=== PATIENT | male | born 1975 | race Caucasian/White ===

== ENCOUNTER 2016-11-29 10:43 | Emergency (ER) | payer MEDICAID ==
[2016-11-29 11:10] VITALS: BP 121/72
--- NOTE | 2016-11-29 11:32 | ER Document Report ---
ED General - General Chief Complaint: Skin Problem Stated Complaint: POSSIBLE SHINGLES Time Seen by Provider: 11/29/16 11:16 Mode of Arrival: Ambulatory Information source: Patient Notes: Patient is 41 year old male who presents with 1 day history of red burning rash to his upper back. He has previous history of shingles and states this feels the same. Reports usually his shingles flare during times of stress and he recently had a relative pass away. He takes gapabentin 800 mg TID which he is out of and takes valtrex once daily. He was seeing a infectious disease doctor for his reoccurring shingles in [place] but has not seen them recently. He denies any fever, chills, difficulty breathing, chest pain. He also endorses right posterior heel pain that has been present for several months. He states his primary doctor in [place] had his foot xrayed and ultrasound done in October 2016 but both were normal. He endorses pain worse with walking and relief when pressure is applied to the heel. Denies any fever, chills, swelling, erythema, warmth, deformity, drainage or bleeding. TRAVEL OUTSIDE OF THE [place] 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 Review of Systems - Review of Systems Constitutional: See HPI EENT: No symptoms reported Cardiovascular: No symptoms reported Respiratory: No symptoms reported Gastrointestinal: No symptoms reported Genitourinary: No symptoms reported Male Genitourinary: No symptoms reported Musculoskeletal: See HPI Skin: See HPI Hematologic/Lymphatic: No symptoms reported Neurological/Psychological: No symptoms reported Physical Exam - Vital signs Vitals: Temp Pulse Resp BP Pulse Ox 98.3 F 67 20 121/72 99 11/29/16 11:05 11/29/16 11:05 11/29/16 11:05 11/29/16 11:05 11/29/16 11:05 Interpretation: Normal - Notes Notes: PHYSICAL EXAM: CONSTITUTIONAL: Alert and oriented, well-appearing and in no acute distress. HENT: Normocephalic, atraumatic. Trachea midline. Uvula midline. Moist mucous membranes. EYES: Pupils equal round and reactive to light, EOM intact. Sclera anicteric, conjunctiva are normal. No entrapment. NECK: supple without lymphadenopathy. No midline tenderness or paraspinous muscle spasms. No step-offs or deformities. ROM intact. HEART: Regular rate and rhythm without murmurs. LUNGS: CTAB and equal. No wheezes, rales or rhonchi. EXTREMITIES: Normal range of motion, no pitting edema. No cyanosis. Cap Refill < 3 seconds. Tender to palpation to right heel with mild swelling to posterior calcaneus - no erythema, warmth, ecchymosis, fluctuance, drainage, bleeding, deformity. No achilles tendon deformity or pain. NEURO: Cranial nerves grossly intact. Normal sensory/motor exams. PSYCH: Normal mood, normal affect. SKIN: Warm and dry. Normal turgor. No lesions noted. Red vesicular rash in circular pattern localized to C6 dermatome that does not cross the midline. Course - Re-evaluation Re-evalutation: 11/29/16 11:22 Patient seen and examined. Red vesicular rash in circular pattern localized to C6 dermatome that does not cross the midline - consistent with herpes zoster.Will prescribed antiviral and refill his gabapentin. Area to right posterior heel consistent with callus - will defer imaging due to recent normal xrays/ultrasound per patient. Advised to follow-up with podiatry/ortho as needed for this pain. At this time, will discharge with return precautions and follow-up recommendations. Verbal discharge instructions given at the bedside and opportunity for questions given. Medication warnings reviewed. Patient is in agreement with this plan and has verbalized understanding of return precautions and the need for primary care follow-up in the next 24-72 hours. - Vital Signs Vital signs: Temp Pulse Resp BP Pulse Ox 98.3 F 67 20 121/72 99 11/29/16 11:05 11/29/16 11:05 11/29/16 11:05 11/29/16 11:05 11/29/16 11:05 Discharge - Discharge Clinical Impression: Shingles Qualifiers: Herpes zoster complications: without complications Qualified Code(s): B02.9 - Zoster without complications Right ankle pain Qualifiers: Chronicity: acute Qualified Code(s): M25.571 - Pain in right ankle and joints of right foot Condition: Stable Disposition: HOME, SELF-CARE Additional Instructions: Shingles You have shingles. Shingles is caused by the chicken pox virus, The virus has been surviving dormant in a nerve cell since you had chicken pox years ago. The virus has spread down a nerve root to reach the skin. Typically, an band-like area of pain and skin sensitivity develops, then small blisters erupt in the area. Shingles lasts two or three weeks, but sometimes leaves persistent pain. You are contagious -- you can give children chicken pox. But you can't give anyone shingles. Antiviral medicines (such as acyclovir or famciclovir) can help, but the rash usually worsens for about a week. Pain medication is often given if the area hurts. Antihistamines such as Benadryl may be necessary for itching if it does not respond to soda baths and calamine lotion. Sometimes cortisone medicine or nerve-block shots are necessary if pain is severe. If the area remains severely painful as the sores heal, or if you suspect an infection developing in the sores, see your doctor. For your ankle pain, because you have had normal ultrasound and xrays, we recommend you follow-up with orthopedics for further evaluation and imaging studies. You have been provided with this contact information. FOLLOW-UP CARE: If you have been referred to a physician for follow-up care, call the physician s office for an appointment as you were instructed or within the next two days. If you experience worsening or a significant change in your symptoms, notify the physician immediately or return to the Emergency Department at any time for re-evaluation. Prescriptions: Gabapentin 800 mg PO Q8H 30 Days Hydrocodone/Acetaminophen [Collyer 5-325 mg Tablet] 1 tab PO Q6H PRN #10 tablet PRN Reason: Valacyclovir HCl [Valtrex] 1,000 mg PO TID 7 Days Referrals: DIRK HERNANDEZ MD [ACTIVE STAFF] - Follow up as needed
== END 2016-11-29 11:38 | disposition home or self-care (01) ==
LOC: ER 10:43
DX: B02.9 Zoster without complications (principal); M25.571 Pain in right ankle and joints of right foot; M79.671 Pain in right foot; M79.89 Other specified soft tissue disorders; F17.200 Nicotine dependence, unspecified, uncomplicated; Z86.14 Personal history of Methicillin resistant Staphylococcus aureus infection
CPT/HCPCS: 99283

== ENCOUNTER 2018-10-19 18:08 | Emergency (ER) | payer SELFPAY ==
[2018-10-19] MEDS ORDERED: MORPHINE SULFATE 10 MG/ML INJ IV PRN (18:42)
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
[2018-10-19 20:31] VITALS: BP 125/89
== END 2018-10-19 20:33 | disposition home or self-care (01) ==
LOC: ER 18:08
DX: S09.90XA Unspecified injury of head, initial encounter (principal); M25.512 Pain in left shoulder; M54.2 Cervicalgia; W20.8XXA Other cause of strike by thrown, projected or falling object, initial encounter; F17.200 Nicotine dependence, unspecified, uncomplicated; Z86.14 Personal history of Methicillin resistant Staphylococcus aureus infection
CPT/HCPCS: 99284; 96374; 71045; 73000; 73030; 70450; 72125; L0120; J2270

== ENCOUNTER 2019-07-05 16:53 | Emergency (ER) | payer SELFPAY ==
[2019-07-05] MEDS ORDERED: AMOXICILLIN TRIHYDRATE 500 MG CAPSULE PO ONE (19:04)
[2019-07-05] MEDS ORDERED: AMOXICILLIN TR/POT CLAVULANATE 500-125 MG TAB PO ONE (19:04)
--- NOTE | 2019-07-05 19:05 | ER Document Report ---
HPI - HPI Time Seen by Provider: 07/05/19 19:04 Pain Level: 3 Context: Patient is a 44-year-old male with a history of hypertension and chronic nerve pain who presents emergency department with a chief complaint of dog bite. Patient reports he was bit by a stray dog 2 days ago [place] Patient reports that the dog came up to him and he bent down to pet him when it bit his hand. Patient reports a puncture wound to the right hand and teeth farris to the top of the right forearm. Patient reports since then they have scabbed over but they are slightly reddened. Patient reports 1 of the wounds did have a small amount of drainage. Patient denies fever. Patient reports he has not been seen by provider or given antibiotics. Patient reports his tetanus shot is up-to-date. Patient reports that the animal control was not notified. 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 He reports that his friends were visiting from out of town and that they had since returned to another state. He states that the immunizations are up-to-date on the dog and that he would like to refuse the rabies vaccination although he does not have proof that the shots are up-to-date. Past Medical History - General Information source: Patient - Social History Smoking Status: Current Every Day Smoker Chew tobacco use (# tins/day): No Frequency of alcohol use: None Drug Abuse: None Lives with: Family Family History: Reviewed & Not Pertinent Patient has suicidal ideation: No Patient has homicidal ideation: No - Past Medical History Cardiac Medical History: Reports: Hx Hypertension Pulmonary Medical History: Reports: None EENT Medical History: Reports: None Neurological Medical History: Reports: None Endocrine Medical History: Reports: None Renal/ Medical History: Reports: None. Denies: Hx Peritoneal Dialysis Malignancy Medical History: Reports None GI Medical History: Reports: None Musculoskeletal Medical History: Reports None Skin Medical History: Comment Only Hx MRSA - MRSA 05/18 HAND Psychiatric Medical History: Reports: None Traumatic Medical History: Reports: None Infectious Medical History: Reports: None Surgical Hx: Negative Vertical Provider Document - CONSTITUTIONAL Agree With Documented VS: Yes Exam Limitations: No Limitations General Appearance: No Apparent Distress - INFECTION CONTROL TRAVEL OUTSIDE OF THE [place] IN LAST 30 DAYS: No - HEENT HEENT: Atraumatic, Normal ENT Exam, Normocephalic, PERRLA - RESPIRATORY Respiratory: Breath Sounds Normal, No Respiratory Distress - CARDIOVASCULAR Cardiovascular: Regular Rate, Regular Rhythm - GI/ABDOMEN Gastrointestinal: Abdomen Soft, Abdomen Non-Tender, Normal Bowel Sounds - MUSCULOSKELETAL/EXTREMETIES Musculoskeletal/Extremeties: FROM, Non-Tender - NEURO Level of Consciousness: Awake, Alert, Appropriate - DERM Integumentary: Warm Notes: Patient has a scabbed over puncture wound x2 to the dorsal aspect of the right hand. There is a slight amount of erythema noted around the scab consistent with possible healing. There is no active drainage. Patient is able to make a fist with his right hand. Patient has a palpable +2 radial and brachial pulse. Patient does have 2 superficial scratches to the dorsal aspect of the right forearm. Slight erythema noted around the scab consistent with possible healing. No signs of cellulitis at this time. Course - Re-evaluation Re-evalutation: 07/05/19 19:35 We will clean the patient's dog bites. Patient continues to refuse the rabies vaccination as he reports that the dog's immunizations are up-to-date. I did inform him that he can if he were exposed to the rabies. Patient verbalized understanding and states that he is not want the rabies vaccine or immunoglobulin at this time. We will give the patient a dose of antibiotics as well as obtain an x-ray to rule out foreign body. 07/05/19 20:09 Patient's x-ray were negative for any acute foreign body. Patient stable for discharge and given strict return precautions. 07/05/19 20:21 I did reiterate the importance of receiving the rabies vaccine as the dog could have rabies. Patient reports that he does not want the rabies vaccination or immunoglobulin as the dog is well taking care of and he knows that the shots are up-to-date. - Vital Signs Vital signs: Temp Pulse Resp BP Pulse Ox 98.0 F 65 18 119/79 97 07/05/19 17:09 07/05/19 17:09 07/05/19 17:09 07/05/19 17:09 07/05/19 17:09 - Diagnostic Test Radiology reviewed: Reports reviewed Radiology results interpreted by me: 07/05/19 20:09 Forearm X-Ray 07/05/19 19:04 IMPRESSION: Distal forearm soft tissue swelling without radiopaque foreign body or acute underlying osseous abnormality. Hand X-Ray 07/05/19 19:04 IMPRESSION: Distal forearm and dorsal hand soft tissue swelling without radiopaque foreign body or acute underlying osseous abnormality. Discharge - Discharge Clinical Impression: Dog bite Qualifiers: Encounter type: initial encounter Qualified Code(s): W54.0XXA - Bitten by dog, initial encounter Condition: Stable Disposition: HOME, SELF-CARE Additional Instructions: *Today you are seen in the emergency department for a dog bite. We did clean the wounds as well as obtain an x-ray of your right hand and forearm to rule out possible broken bone or foreign body. These x-rays were negative. We have started you on oral antibiotics and given your first dose here in the emergency department. You will take this antibiotic for the next 10 days to help prevent infection. Animal bites are heavily contaminated with bacteria. You do need to keep the wounds as clean as possible and to monitor for worsening signs of infection to include increasing redness, increasing swelling and streaking of redness up the arm, fever or any new or worsening symptoms. If you develop any of the symptoms please return immediately. We did offer you the rabies vaccine and immunoglobulin as you do not have proof that the dog's immunizations are up-to-date but you have politely declined this at this time. If you do decide you would like this please return to the emergency department. Animal Bites Animal bites are often heavily contaminated with bacteria. In spite of thorough cleansing and proper treatment, these wounds frequently become infected. Bite wounds of the hands are especially prone to complications. Bites are dressed, if possible. Large wounds may require suturing after internal cleansing. Because of infection risk, some large wounds must remain unstitched. Your doctor is trained to advise you on the best treatment for your bite. Call the doctor at once if the wound becomes red, swollen, warm, increasingly painful, or if it begins to drain. Danger signs also include red streaks up the involved extremity, swollen glands in the groin or under the arm, or fever and chills. The risk of rabies from domestic animals is very low. Bats, sick animals, and wild animals may expose you to rabies. The physician, or the health department, will inform you if you will need to receive the rabies vaccine. Prescriptions: Amox Tr/Potassium Clavulanate [Augmentin 875-125 mg Tablet] 1 tab PO BID #20 tablet Referrals: SHARRI ZEPEDA MD [COMMUNITY BASED STAFF] - Follow up as needed GRAEME LAW MD [ACTIVE STAFF] - Follow up as needed
--- NOTE | 2019-07-05 19:53 | RADIOLOGY REPORT (SQ) ---
EXAM DESCRIPTION: FOREARM RIGHT COMPLETED DATE/TIME: 07/05/2019 7:32 pm REASON FOR STUDY: dog bite right hand/forearm COMPARISON: None. NUMBER OF VIEWS: Two views. TECHNIQUE: Two radiographic images acquired of the right forearm, including elbow and wrist in at le ast one projection. LIMITATIONS: None. FINDINGS: MINERALIZATION: Normal. BONES: No acute fracture. No worrisome bone lesions. Degenerative changes of the elbow. SOFT TISSUES: Distal forearm soft tissue swelling. No foreign body. OTHER: No other significant finding. IMPRESSION: Distal forearm soft tissue swelling without radiopaque foreign body or acute underlying osseous abnormality. TECHNICAL DOCUMENTATION: JOB ID: [id number] [employer]- All Rights Reserved Reading location - IP/workstation name: [email or web address]
--- NOTE | 2019-07-05 19:54 | RADIOLOGY REPORT (SQ) ---
EXAM DESCRIPTION: HAND RIGHT 3 VIEWS COMPLETED DATE/TIME: 07/05/2019 7:32 pm REASON FOR STUDY: dog bite right hand/forearm COMPARISON: None. EXAM PARAMETERS: NUMBER OF VIEWS: Three views. TECHNIQUE: AP, lateral and oblique radiographic images acquired of the right hand. LIMITATIONS: None. FINDINGS: MINERALIZATION: Normal. BONES: No acute fracture or dislocation. No worrisome bone lesions. JOINTS: No effusions. SOFT TISSUES: Distal forearm and dorsal hand soft tissue swelling. No foreign body. OTHER: No other significant finding. IMPRESSION: Distal forearm and dorsal hand soft tissue swelling without radiopaque foreign body or a cute underlying osseous abnormality. TECHNICAL DOCUMENTATION: JOB ID: [id number] [employer]- All Rights Reserved Reading location - IP/workstation name: [email or web address]
[2019-07-05 19:56] VITALS: BP 136/78
== END 2019-07-05 20:17 | disposition home or self-care (01) ==
LOC: ER 16:53
DX: S61.451A Open bite of right hand, initial encounter (principal); S51.851A Open bite of right forearm, initial encounter; W54.0XXA Bitten by dog, initial encounter; Y92.828 Other wilderness area as the place of occurrence of the external cause
CPT/HCPCS: 99283

== ENCOUNTER → 2020-05-09 | Outpatient (CLI) | payer SELFPAY ==
--- NOTE | 2020-05-10 08:29 | RADIOLOGY REPORT (SQ) ---
EXAM DESCRIPTION: ANKLE RIGHT COMPLETE; FOOT LEFT COMPLETE IMAGES COMPLETED DATE/TIME: 05/09/2020 8:52 pm REASON FOR STUDY: INJURY OF RIGHT ANKLE, INITIAL ENCOUNTER; INJURY OF FOOT, INITIAL ENCOUNTER COMPARISON: None. NUMBER OF VIEWS: Six views. TECHNIQUE: AP, lateral and oblique radiographic images acquired of the right ankle and right foot. LIMITATIONS: None. FINDINGS: MINERALIZATION: Normal. BONES: No acute fracture or dislocation. No worrisome bone lesions. JOINTS: No effusions. SOFT TISSUES: No soft tissue swelling. No foreign body. OTHER: No other significant finding. IMPRESSION: No evidence of acute injury. TECHNICAL DOCUMENTATION: JOB ID: [id number] 2010 [employer]- All Rights Reserved Reading location - IP/workstation name: [email or web address]
--- NOTE | 2020-05-10 08:29 | RADIOLOGY REPORT (SQ) ---
EXAM DESCRIPTION: ANKLE RIGHT COMPLETE; FOOT LEFT COMPLETE IMAGES COMPLETED DATE/TIME: 05/09/2020 8:52 pm REASON FOR STUDY: INJURY OF RIGHT ANKLE, INITIAL ENCOUNTER; INJURY OF FOOT, INITIAL ENCOUNTER COMPARISON: None. NUMBER OF VIEWS: Six views. TECHNIQUE: AP, lateral and oblique radiographic images acquired of the right ankle and right foot. LIMITATIONS: None. FINDINGS: MINERALIZATION: Normal. BONES: No acute fracture or dislocation. No worrisome bone lesions. JOINTS: No effusions. SOFT TISSUES: No soft tissue swelling. No foreign body. OTHER: No other significant finding. IMPRESSION: No evidence of acute injury. TECHNICAL DOCUMENTATION: JOB ID: [id number] 2010 [employer]- All Rights Reserved Reading location - IP/workstation name: [email or web address]
--- NOTE | 2020-05-10 08:42 | RADIOLOGY REPORT (SQ) ---
EXAM DESCRIPTION: HAND RIGHT 3 VIEWS IMAGES COMPLETED DATE/TIME: 05/09/2020 8:52 pm REASON FOR STUDY: INJURY OF HAND, INITIAL ENCOUNTER COMPARISON: 07/05/2019 EXAM PARAMETERS: NUMBER OF VIEWS: Three views. TECHNIQUE: AP, lateral and oblique radiographic images acquired of the right hand. LIMITATIONS: None. FINDINGS: MINERALIZATION: Normal. BONES: No acute fracture or dislocation. No worrisome bone lesions. JOINTS: No effusions. SOFT TISSUES: No soft tissue swelling. No foreign body. OTHER: No other significant finding. IMPRESSION: NO RADIOGRAPHIC EVIDENCE OF ACUTE INJURY. TECHNICAL DOCUMENTATION: JOB ID: [id number] 2010 [employer]- All Rights Reserved Reading location - IP/workstation name: [email or web address]
--- NOTE | 2020-05-10 08:45 | RADIOLOGY REPORT (SQ) ---
EXAM DESCRIPTION: SHOULDER LEFT 2 OR MORE VIEWS IMAGES COMPLETED DATE/TIME: 05/09/2020 8:52 pm REASON FOR STUDY: INJURY OF SHOULDER, INITIAL ENCOUNTER COMPARISON: 10/19/2018 NUMBER OF VIEWS: Three views. TECHNIQUE: Internal rotation, external rotation, and Y view images acquired of the left shoulder. LIMITATIONS: None. FINDINGS: MINERALIZATION: Normal. BONES: No acute fracture. No worrisome bone lesions. JOINTS: No dislocation. VISUALIZED LUNGS AND RIBS: No pneumothorax. No rib fracture. SOFT TISSUES: No radiopaque foreign body. OTHER: No other significant finding. IMPRESSION: NEGATIVE STUDY OF THE LEFT SHOULDER. NO RADIOGRAPHIC EVIDENCE OF ACUTE INJURY. TECHNICAL DOCUMENTATION: JOB ID: [id number] 2010 [employer]- All Rights Reserved Reading location - IP/workstation name: [email or web address]
--- NOTE | 2020-05-10 08:47 | RADIOLOGY REPORT (SQ) ---
EXAM DESCRIPTION: HIP RIGHT AP/LATERAL IMAGES COMPLETED DATE/TIME: 05/09/2020 8:52 pm REASON FOR STUDY: INJURY OF HIP, INITIAL ENCOUNTER COMPARISON: None. NUMBER OF VIEWS: Two views. TECHNIQUE: AP pelvis and additional frog legview of the right hip. LIMITATIONS: Metal artifact overlying pubic symphysis. FINDINGS: MINERALIZATION: Normal. RIGHT HIP: No fracture or dislocation. No worrisome bone lesions. LEFT HIP: No fracture or dislocation. No worrisome bone lesions. Limited views. PUBIS AND ISCHIUM: No fracture. PELVIS: No fracture. SACRUM: No fracture or dislocation. No worrisome bone lesions. LOWER LUMBAR SPINE: No fracture or dislocation. No worrisome bone lesions. No significant disc disea se. SOFT TISSUES: No findings. OTHER: No other significant finding. IMPRESSION: No fracture. TECHNICAL DOCUMENTATION: JOB ID: [id number] 2010 [employer]- All Rights Reserved Reading location - IP/workstation name: [email or web address]
== END ==
LOC: RAD 20:13
PROVIDERS: ATTEND Family Medicine
DX: S99.911A Unspecified injury of right ankle, initial encounter (principal); S99.922A Unspecified injury of left foot, initial encounter; S69.91XA Unspecified injury of right wrist, hand and finger(s), initial encounter; S49.92XA Unspecified injury of left shoulder and upper arm, initial encounter; S79.911A Unspecified injury of right hip, initial encounter; X58.XXXA Exposure to other specified factors, initial encounter; Y93.89 Activity, other specified; Y92.89 Other specified places as the place of occurrence of the external cause